=== PATIENT | female | born 1980 | race African-American/Black ===

== ENCOUNTER 2018-10-23 09:19 | Emergency (ER) | payer MEDICAID ==
[~2018-10-23] VITALS: Ht 152.4 cm; Wt 104.0 kg
[2018-10-23 10:11] VITALS: BP 137/82
[2018-10-23] MEDS ORDERED: IBUPROFEN 600MG TABLET PO ONE (10:15)
== END 2018-10-23 10:13 | disposition home or self-care (01) ==
LOC: ER 09:19
DX: H66.91 Otitis media, unspecified, right ear (principal); R07.0 Pain in throat; R05 Cough; Z98.890 Other specified postprocedural states
CPT/HCPCS: 99282; 99283

== ENCOUNTER 2019-02-16 15:25 | Emergency (ER) | payer MEDICAID ==
[~2019-02-16] VITALS: Ht 152.4 cm; Wt 100.0 kg
[2019-02-16] MEDS ORDERED: FLUORESCEIN SODIUM 1MG/STRIP LEFTEYE ONE (16:00)
[2019-02-16] MEDS ORDERED: TETRACAINE 0.5% OPHTH DROPS 4ML LEFTEYE ONE (16:00)
[2019-02-16 16:37] VITALS: BP 115/75
== END 2019-02-16 16:39 | disposition home or self-care (01) ==
LOC: ER 15:25
DX: H16.002 Unspecified corneal ulcer, left eye (principal)
CPT/HCPCS: 99283